=== PATIENT | female | born 1960 | race Caucasian/White ===

== ENCOUNTER 2021-10-22 06:57 | Observation (INO) | payer BC ==
[~2021-10-22] VITALS: Ht 149.9 cm; Wt 61.2 kg
[~2021-10-22 06:57] MED LIST: ALENDRONATE SOD70 MG PO; AMBIEN5 MG PO; CELEBREX100 MG PO; COMBIGAN EYE DRO5 ML OP; HYDROXYCHLOROQ200 MG PO; LUMIGAN2.5 M1 OP; NEXIUM40 MG PO; PRAVASTATIN SOD20 MG PO; ROPIVACAINE 246.25 MG, EPINEPHRINE HCL 1:1000 1ML 0.5 MG, CLONIDINE HCL 0.08 MG, KETORO... INJ ONE; TYLENOL ARTHRITIS PO
[2021-10-22] MEDS ORDERED: TRANEXAMIC ACID 1,000 MG/10 ML ML ONE (07:22)
[2021-10-22] MEDS ORDERED: Vancomycin IV 1,000 MG ONE (07:22)
[2021-10-22] MEDS ORDERED: SODIUM CHLORIDE 0.9% 500ML 500 ML ONE (07:22)
[2021-10-22] MEDS ORDERED: DEXAMETHASONE SOD PHOS 10 MG/1 ML VIAL ONE (07:23)
[2021-10-22] MEDS ORDERED: CELECOXIB 200 MG CAP ONE (07:23)
[2021-10-22] MEDS ORDERED: GABAPENTIN 300 MG CAP ONE (07:24)
[2021-10-22] MEDS ORDERED: SODIUM CHLORIDE 0.9% 50ML 100 ML ONE (07:24)
[2021-10-22] MEDS ORDERED: DIPHENHYDRAMINE HCL INJ 50 MG/ML VIAL IV PRN (09:45)
[2021-10-22] MEDS ORDERED: ONDANSETRON HCL INJ 2MG/ML 2ML 2 MG/ML VIAL IV PRN (09:45)
[2021-10-22] MEDS ORDERED: ZOLPIDEM TARTRATE 5 MG TAB PO PRN (09:45)
[2021-10-22] MEDS ORDERED: KETOROLAC TROMETHAMINE 30 MG/ML VIAL IV PRN (09:45)
[2021-10-22] MEDS ORDERED: ACETAMINOPHEN 650 MG SUPP PR PRN (09:45)
[2021-10-22] MEDS ORDERED: HYDROCODONE/APAP 5MG-325MG TAB PO PRN (09:45)
[2021-10-22] MEDS ORDERED: DOCUSATE SODIUM 100 MG CAP PO PRN (09:45)
[2021-10-22] MEDS ORDERED: HYDROCODONE/APAP 7.5MG-325MG 1 EA TAB PO PRN (09:45)
[2021-10-22 10:29] VITALS: BP 115/62
[2021-10-22 10:33] VITALS: BP 115/62
[2021-10-22] MEDS ORDERED: SODIUM CHLORIDE 0.9% 1000ML 1,000 ML IV SCH (11:30)
[2021-10-22] MEDS ORDERED: BUPIVACAINE HCL 0.5% INJ 30 ML VIAL INJ ONE (11:54)
[2021-10-22 12:08] VITALS: BP 115/62
[2021-10-22] MEDS ORDERED: MIDAZOLAM HCL 2 MG/2 ML VIAL ONE (12:34)
[2021-10-22] MEDS ORDERED: FENTANYL CITRATE/PF 100MCG/2 ML INJ ONE (12:34)
[2021-10-22] MEDS ORDERED: Cefazolin 1 GM in SODIUM CHLORIDE 0.9% 50ML 50 ML IV SCH (16:00)
[2021-10-22] MEDS ORDERED: CELECOXIB 200 MG CAP PO SCH (17:00)
[2021-10-22] MEDS ORDERED: ASPIRIN 325 MG TAB PO SCH (17:00)
[2021-10-23] MEDS ORDERED: ACETAMINOPHEN 1000 MG/100 ML IV PRN (09:45)
== END 2021-10-22 19:00 | disposition home or self-care (01) ==
LOC: OR 06:57 → PACU V 09:48 → MED/SURG 10:16
PROVIDERS: ADMIT Specialist; ATTEND Specialist
DX: M16.0 Bilateral primary osteoarthritis of hip (principal); Z96.641 Presence of right artificial hip joint; M75.42 Impingement syndrome of left shoulder; E78.5 Hyperlipidemia, unspecified; F41.9 Anxiety disorder, unspecified; Z20.822 Contact with and (suspected) exposure to COVID-19
CPT/HCPCS: 27130; 72170; 86850; 86900; 86920; 88304; 94799; 97110; 97116; 97161; 97530; C1713 ×2; C1776 ×3; G0378; J0171; J0690; J1100; J1885; J2250; J2795; J3010; J3370; J7030; J7040; U0002